=== PATIENT | female | born 1965 | race Caucasian/White ===

== ENCOUNTER 2017-07-25 09:11 | Outpatient (CLI) | payer MEDICARE, OTHER ==
[~2017-07-25 09:11] MED LIST: ATIVAN0.5 MG ORAL
== END 2017-07-25 11:11 | disposition home or self-care (01) ==
LOC: ECT 09:11
DX: F33.2 Major depressive disorder, recurrent severe without psychotic features (principal); F43.10 Post-traumatic stress disorder, unspecified; F50.9 Eating disorder, unspecified; M79.7 Fibromyalgia; K50.90 Crohn's disease, unspecified, without complications

== ENCOUNTER 2017-09-04 08:37 | Outpatient (RCR) | payer MEDICARE, OTHER ==
[~2017-09-04] VITALS: Ht 165.1 cm; Wt 63.5 kg
[2017-09-04] MEDS ORDERED: Methohexital Sodium Syr 100mg/10ml IVP ONE ×2 (08:38)
[2017-09-04] MEDS ORDERED: NS 500ML IV ONE ×2 (08:38)
[2017-09-04] MEDS ORDERED: Midazolam 2mg/2ml Inj ONE ×2 (08:38)
[2017-09-04] MEDS ORDERED: Succinylcholine 20mg/ml 10ml vial ONE ×2 (08:38)
[2017-09-04] MEDS ORDERED: Sodium Chloride 500ML 500 ML IV ONE (10:38)
[2017-09-18 10:25] VITALS: BP 120/65
[2017-09-18] MEDS ORDERED: Sodium Chloride 500ML 500 ML IV ONE (10:39)
[2017-09-18 10:40] VITALS: BP 111/59
[2017-09-18 10:45] VITALS: BP 126/69
[2017-09-18 10:50] VITALS: BP 100/69
[2017-09-18 10:55] VITALS: BP 104/57
[2017-09-25] MEDS ORDERED: Methohexital Sodium Syr 100mg/10ml IVP ONE (07:00)
[2017-09-25] MEDS ORDERED: Succinylcholine 20mg/ml 10ml vial ONE (07:00)
[2017-09-25] MEDS ORDERED: NS 500ML IV ONE (07:00)
[2017-09-25] MEDS ORDERED: Midazolam 2mg/2ml Inj ONE (07:00)
[2017-09-25] MEDS ORDERED: Sodium Chloride 500ML 500 ML IV ONE (11:02)
[2017-09-25 11:05] VITALS: BP 145/79
[2017-09-25 11:10] VITALS: BP 128/39
[2017-09-25 11:15] VITALS: BP 122/74
[2017-09-25 11:20] VITALS: BP 125/61
== END 2017-09-26 | disposition home or self-care (01) ==
LOC: ECT 08:37
DX: F33.2 Major depressive disorder, recurrent severe without psychotic features (principal)
CPT/HCPCS: 90870; J0330; J2250; J7040

== ENCOUNTER 2017-10-02 06:22 | Outpatient (RCR) | payer MEDICARE, OTHER ==
[~2017-10-02] VITALS: Ht 165.1 cm; Wt 63.5 kg
[2017-10-02] MEDS ORDERED: NS 500ML IV ONE (06:23)
[2017-10-02] MEDS ORDERED: Methohexital Sodium Syr 100mg/10ml IVP ONE (06:23)
[2017-10-02] MEDS ORDERED: Midazolam 2mg/2ml Inj ONE (06:23)
[2017-10-02] MEDS ORDERED: Succinylcholine 20mg/ml 10ml vial ONE (06:23)
[2017-10-02 09:04] VITALS: BP 112/46
[2017-10-02] MEDS ORDERED: Sodium Chloride 500ML 500 ML IV ONE (09:21)
[2017-10-02 09:25] VITALS: BP 116/54
[2017-10-02 09:30] VITALS: BP 104/61
[2017-10-02 09:35] VITALS: BP 94/55
[2017-10-02 09:40] VITALS: BP 101/57
[2017-10-03] MEDS ORDERED: Sodium Chloride 500ML 500 ML IV ONE ×2 (08:42→09:21)
== END 2017-10-26 | disposition home or self-care (01) ==
LOC: ECT 06:22
DX: F33.2 Major depressive disorder, recurrent severe without psychotic features (principal)
CPT/HCPCS: 90870; J0330; J2250; J7040